=== PATIENT | female | born 1985 | race Caucasian/White ===

== ENCOUNTER → 2017-06-21 | Outpatient (CLI) | payer BC | END | disposition home or self-care (01) | LOC: LAB 12:00 | DX: D64.9 Anemia, unspecified (principal); E03.9 Hypothyroidism, unspecified; E16.2 Hypoglycemia, unspecified; N39.0 Urinary tract infection, site not specified; E78.2 Mixed hyperlipidemia; E55.9 Vitamin D deficiency, unspecified; E28.2 Polycystic ovarian syndrome; N92.6 Irregular menstruation, unspecified; R82.79 Other abnormal findings on microbiological examination of urine ==

== ENCOUNTER 2017-12-17 09:31 | Outpatient (CLI) | payer BC | END 2017-12-17 09:44 | disposition home or self-care (01) | LOC: LAB 09:31 | DX: E22.1 Hyperprolactinemia (principal) ==

== ENCOUNTER 2018-07-25 09:50 | Outpatient (CLI) | payer BC | END 2018-07-25 09:57 | disposition home or self-care (01) | LOC: LAB 09:50 | DX: E03.8 Other specified hypothyroidism (principal); I10 Essential (primary) hypertension; E78.4 Other hyperlipidemia; N30.00 Acute cystitis without hematuria; E83.51 Hypocalcemia ==

== ENCOUNTER → 2019-01-02 14:17 | Outpatient (CLI) | payer BC | END | disposition home or self-care (01) | LOC: LAB 14:17 | DX: Z34.82 Encounter for supervision of other normal pregnancy, second trimester (principal); A92.8 Other specified mosquito-borne viral fevers ==

== ENCOUNTER 2019-02-19 06:31 | Outpatient (CLI) | payer BC | END 2019-02-19 06:46 | disposition home or self-care (01) | LOC: LAB 06:31 | DX: Z34.82 Encounter for supervision of other normal pregnancy, second trimester (principal) ==

== ENCOUNTER 2019-03-01 06:31 | Outpatient (CLI) | payer BC | END 2019-03-01 06:40 | disposition home or self-care (01) | LOC: LAB 06:31 | DX: Z34.82 Encounter for supervision of other normal pregnancy, second trimester (principal) ==

== ENCOUNTER 2019-05-02 06:30 | Outpatient (CLI) | payer BC | END 2019-05-02 06:40 | disposition home or self-care (01) | LOC: LAB 06:30 | DX: Z34.83 Encounter for supervision of other normal pregnancy, third trimester (principal); A92.8 Other specified mosquito-borne viral fevers ==

== ENCOUNTER 2019-05-16 14:58 | Inpatient (IN) | payer BC ==
[2019-05-28] MEDS ORDERED: IRON18 MG PO (10:25)
[2019-05-28] MEDS ORDERED: PRENA1 TRUE CO1 EACH PO (10:26)
[2019-05-28] MEDS ORDERED: PROAIR RESPICL90 MCG IH (10:27)
[2019-05-28] MEDS ORDERED: SYMBICORT 80/10.2 GM IH (10:28)
[2019-06-01] MEDS ORDERED: FUSION PLUS CA1 EACH PO (10:55)
[2019-06-01] MEDS ORDERED: SIMETHICONE125 M1 PO (10:56)
[2019-06-01] MEDS ORDERED: COLACE100 MG PO (10:56)
[2019-06-01] MEDS ORDERED: IBU600 MG PO (10:57)
== END 2019-06-01 12:04 | disposition home or self-care (01) | DRG 788 ==
LOC: O/R 05-28 07:12 → OB/GYN 05-28 07:12 → LDR 05-28 07:12 → O/R 05-29 12:53 → OB/GYN 05-29 16:12 → LDR 06-03 14:15
PROVIDERS: ADMIT Obstetrics & Gynecology
PROC: 3E0P7VZ Introduction of Hormone into Female Reproductive, Via Natural or Artificial Opening (ICD-10-PCS; 2019-05-28)
PROC: 3E033VJ Introduction of Other Hormone into Peripheral Vein, Percutaneous Approach (ICD-10-PCS; 2019-05-28)
PROC: 4A1HXCZ Monitoring of Products of Conception, Cardiac Rate, External Approach (ICD-10-PCS; 2019-05-28)
PROC: 10D00Z1 Extraction of Products of Conception, Low, Open Approach (ICD-10-PCS; principal; 2019-05-29 13:30)
DX: O82 Encounter for cesarean delivery without indication (principal); O61.0 Failed medical induction of labor; Z3A.39 39 weeks gestation of pregnancy; Z37.0 Single live birth

== ENCOUNTER 2019-07-02 11:39 | Outpatient (CLI) | payer BC ==
[~2019-07-02 11:39] MED LIST: COLACE100 MG PO; FUSION PLUS CA1 EACH PO; IBU600 MG PO; IRON18 MG PO; PRENA1 TRUE CO1 EACH PO; PROAIR RESPICL90 MCG IH; SIMETHICONE125 M1 PO; SYMBICORT 80/10.2 GM IH
== END 2019-07-02 11:45 | disposition home or self-care (01) ==
LOC: LAB 11:39
DX: E11.9 Type 2 diabetes mellitus without complications (principal); D64.89 Other specified anemias

== ENCOUNTER → 2019-10-02 11:20 | Outpatient (CLI) | payer BC | END | disposition home or self-care (01) | LOC: LAB 11:20 | PROVIDERS: ATTEND Obstetrics & Gynecology Maternal & Fetal Medicine | DX: E03.8 Other specified hypothyroidism (principal); D63.8 Anemia in other chronic diseases classified elsewhere; N30.90 Cystitis, unspecified without hematuria; R73.09 Other abnormal glucose ==

== ENCOUNTER → 2019-10-11 10:46 | Outpatient (CLI) | payer BC | END | disposition home or self-care (01) | LOC: LAB 10:46 | PROVIDERS: ATTEND General Practice | DX: R05 Cough (principal); R06.2 Wheezing; R50.9 Fever, unspecified; Z20.828 Contact with and (suspected) exposure to other viral communicable diseases ==

== ENCOUNTER 2019-10-11 12:29 | Outpatient (CLI) | payer BC | END 2019-10-11 12:35 | disposition home or self-care (01) | LOC: LAB 12:29 | PROVIDERS: ATTEND Obstetrics & Gynecology Maternal & Fetal Medicine | DX: D64.89 Other specified anemias (principal) ==

== ENCOUNTER 2019-10-11 13:25 | Outpatient (CLI) | payer BC | END 2019-10-11 13:31 | disposition home or self-care (01) | LOC: SONOGRAMA 13:25 → MAMO-SONO 14:45 | PROVIDERS: ATTEND Obstetrics & Gynecology Maternal & Fetal Medicine | DX: N60.11 Diffuse cystic mastopathy of right breast (principal); N60.12 Diffuse cystic mastopathy of left breast; N63.10 Unspecified lump in the right breast, unspecified quadrant; N63.20 Unspecified lump in the left breast, unspecified quadrant ==

== ENCOUNTER 2019-12-12 06:23 | Outpatient (CLI) | payer BC | END 2019-12-12 06:34 | disposition home or self-care (01) | LOC: LAB 06:23 | PROVIDERS: ATTEND Obstetrics & Gynecology Maternal & Fetal Medicine | DX: E03.8 Other specified hypothyroidism (principal); N91.2 Amenorrhea, unspecified; N92.1 Excessive and frequent menstruation with irregular cycle ==

== ENCOUNTER 2019-12-18 10:22 | Outpatient (CLI) | payer BC | END 2019-12-18 14:12 | disposition home or self-care (01) | LOC: SONOGRAMA 10:22 | PROVIDERS: ATTEND Obstetrics & Gynecology Maternal & Fetal Medicine | DX: N84.0 Polyp of corpus uteri (principal) ==

== ENCOUNTER → 2020-01-07 10:43 | Outpatient (CLI) | payer BC | END | disposition home or self-care (01) | LOC: LAB 10:43 | PROVIDERS: ATTEND Obstetrics & Gynecology Maternal & Fetal Medicine | DX: N97.1 Female infertility of tubal origin (principal) ==

== ENCOUNTER 2021-02-04 09:05 | Outpatient (CLI) | payer BC | END 2021-02-04 09:06 | disposition home or self-care (01) | LOC: LAB 09:05 | PROVIDERS: ATTEND Obstetrics & Gynecology Maternal & Fetal Medicine | DX: E03.8 Other specified hypothyroidism (principal); D63.8 Anemia in other chronic diseases classified elsewhere; N30.90 Cystitis, unspecified without hematuria; E78.00 Pure hypercholesterolemia, unspecified; R73.09 Other abnormal glucose; K92.1 Melena; E55.9 Vitamin D deficiency, unspecified ==

== ENCOUNTER 2021-02-04 09:39 | Outpatient (CLI) | payer BC | END 2021-02-04 09:50 | disposition home or self-care (01) | LOC: SONOGRAMA 09:39 | PROVIDERS: ATTEND Obstetrics & Gynecology Maternal & Fetal Medicine | DX: N64.59 Other signs and symptoms in breast (principal); N60.11 Diffuse cystic mastopathy of right breast ==

== ENCOUNTER 2021-06-23 15:06 | Outpatient (CLI) | payer OTHER | END 2021-06-23 15:08 | disposition home or self-care (01) | LOC: TOM 15:06 | PROVIDERS: ATTEND Obstetrics & Gynecology Maternal & Fetal Medicine | DX: R10.30 Lower abdominal pain, unspecified (principal) ==

== ENCOUNTER 2022-01-01 09:17 | Outpatient (CLI) | payer OTHER | END 2022-01-01 09:19 | disposition home or self-care (01) | LOC: RAD 09:17 | PROVIDERS: ATTEND Internal Medicine Pulmonary Disease | DX: J45.31 Mild persistent asthma with (acute) exacerbation (principal); U07.1 COVID-19 ==

== ENCOUNTER → 2022-02-12 08:42 | Outpatient (CLI) | payer OTHER | END | disposition home or self-care (01) | LOC: LAB 08:42 | PROVIDERS: ATTEND Internal Medicine Pulmonary Disease | DX: J45.31 Mild persistent asthma with (acute) exacerbation (principal); U09.9 Post COVID-19 condition, unspecified ==

== ENCOUNTER → 2022-07-02 09:22 | Outpatient (CLI) | payer OTHER | END | disposition home or self-care (01) | LOC: LAB 09:22 | PROVIDERS: ATTEND Internal Medicine Hematology & Oncology | DX: D50.8 Other iron deficiency anemias (principal); R79.9 Abnormal finding of blood chemistry, unspecified; R74.02 Elevation of levels of lactic acid dehydrogenase [LDH]; I10 Essential (primary) hypertension; K76.89 Other specified diseases of liver; D63.8 Anemia in other chronic diseases classified elsewhere; D55.0 Anemia due to glucose-6-phosphate dehydrogenase [G6PD] deficiency; D51.1 Vitamin B12 deficiency anemia due to selective vitamin B12 malabsorption with proteinuria; D51.0 Vitamin B12 deficiency anemia due to intrinsic factor deficiency; E03.8 Other specified hypothyroidism; E06.3 Autoimmune thyroiditis; R19.5 Other fecal abnormalities; E55.9 Vitamin D deficiency, unspecified; D50.0 Iron deficiency anemia secondary to blood loss (chronic); N92.1 Excessive and frequent menstruation with irregular cycle ==

== ENCOUNTER → 2022-07-02 | Outpatient (CLI) | payer OTHER | END | disposition home or self-care (01) | LOC: SONOGRAMA 10:29 | PROVIDERS: ATTEND Internal Medicine Hematology & Oncology | DX: E04.2 Nontoxic multinodular goiter (principal); D50.0 Iron deficiency anemia secondary to blood loss (chronic); N92.1 Excessive and frequent menstruation with irregular cycle ==

== ENCOUNTER 2022-12-04 07:55 | Outpatient (CLI) | payer OTHER | END 2022-12-04 08:06 | disposition home or self-care (01) | LOC: LAB 07:55 | PROVIDERS: ATTEND Internal Medicine Hematology & Oncology | DX: D50.8 Other iron deficiency anemias (principal); R79.9 Abnormal finding of blood chemistry, unspecified; I10 Essential (primary) hypertension; R74.02 Elevation of levels of lactic acid dehydrogenase [LDH]; K76.89 Other specified diseases of liver; D51.8 Other vitamin B12 deficiency anemias; E55.9 Vitamin D deficiency, unspecified; E03.8 Other specified hypothyroidism; N92.1 Excessive and frequent menstruation with irregular cycle; D51.3 Other dietary vitamin B12 deficiency anemia ==

== ENCOUNTER 2022-12-20 12:45 | Outpatient (CLI) | payer OTHER | END 2022-12-20 13:05 | disposition home or self-care (01) | LOC: SONOGRAMA 12:45 | PROVIDERS: ATTEND Obstetrics & Gynecology Maternal & Fetal Medicine | DX: N60.19 Diffuse cystic mastopathy of unspecified breast (principal); N63.0 Unspecified lump in unspecified breast; N60.11 Diffuse cystic mastopathy of right breast ==

== ENCOUNTER 2024-02-07 10:17 | Outpatient (CLI) | payer OTHER | END 2024-02-07 10:25 | disposition home or self-care (01) | LOC: MAMO-SONO 10:17 | PROVIDERS: ATTEND Obstetrics & Gynecology Maternal & Fetal Medicine | DX: N63 Unspecified lump in breast (principal); Z12.31 Encounter for screening mammogram for malignant neoplasm of breast; N64.4 Mastodynia; N60.11 Diffuse cystic mastopathy of right breast ==

== ENCOUNTER 2024-11-24 05:55 | Emergency (ER) | payer OTHER ==
[~2024-11-24] VITALS: Ht 162.6 cm; Wt 117.9 kg
[2024-11-24 09:34] LABS: BASO % 0.3 % (0.1-1.2); EOS # 0.14 (0.04-0.54); EOS % 2.3 % (0.7-7.0); LYMPH # 2.27 (1.18-3.74); LYMPH % 36.6 % (19.3-53.1); MEAN PLATELET VOLUME 9.90 fl (9.4-12.4); MONO # 0.43 (0.24-0.82); MONO % 6.9 % (4.7-12.5); NEUT # 3.34 (1.56-6.13); NEUT % 53.7 % (34.0-71.1); RED CELL DISTRIBUTION WIDTH 17.9 % (11.6-14.4)
[2024-11-24 09:50] LABS: BUN CREA RATIO 23.0 (7.0-25.0); CREATININE SERUM 0.65 mg/dL (0.55-1.02); GFR 102.56; GLUCOSE FASTING 105.0 mg/dL (65-100); OSMOLALITY SERUM 282.0 MOSM/KG (275-295)
[2024-11-24] MEDS ORDERED: KETOROLAC TROMETHAMINE 60 MG VIAL IM ONE (12:15)
== END 2024-11-24 12:23 | disposition home or self-care (01) ==
LOC: ER 05:55
DX: K59.01 Slow transit constipation (principal); M94.0 Chondrocostal junction syndrome [Tietze]

== ENCOUNTER 2025-02-07 10:00 | Outpatient (CLI) | payer OTHER ==
[2025-02-07 11:04] LABS: BASO % 0.3 % (0.1-1.2); EOS # 0.09 (0.04-0.54); EOS % 1.5 % (0.7-7.0); LYMPH # 1.95 (1.18-3.74); LYMPH % 31.7 % (19.3-53.1); MEAN PLATELET VOLUME 9.90 fl (9.4-12.4); MONO # 0.39 (0.24-0.82); MONO % 6.3 % (4.7-12.5); NEUT # 3.68 (1.56-6.13); NEUT % 59.9 % (34.0-71.1); RED CELL DISTRIBUTION WIDTH 17.9 % (11.6-14.4)
[2025-02-07 11:07] LABS: URINE APPEARANCE Clear; URINE BILIRRUBIN Negative (NEGATIVE); URINE BLOOD Negative; URINE COLOR Yellow; URINE GLUCOSE Negative (NEGATIVE); URINE KETONE Negative (NEGATIVE); URINE LEUKOCYTE Negative; URINE NITRATE Negative; URINE PROTEIN Negative (NEGATIVE); URINE UROBILINOGEN 1.0 E.U./dl
[2025-02-07 11:11] LABS: URINE BACTERIA 5.9 uL (0.0-1933); URINE EPITHELIAL CELLS 8.3 uL (0.0-38.8); URINE RBC 21.5 uL (0.0-20.8)
[2025-02-07 11:21] LABS: URINE CAST 0.00 uL (0.0-1.40); URINE WBC 1.2 uL (0.0-23.2)
[2025-02-07 11:57] LABS: ALT/SGPT 23.0 U/L (12-78); AST/SGOT 15.0 U/L (15-37); BILIRUBIN TOTAL 0.52 mg/dL (0.3-1.2); BUN CREA RATIO 23.0 (7.0-25.0); CHOL HDL RATIO 4.2 (0-5.0); CREATININE SERUM 0.56 mg/dL (0.55-1.02); GFR 121.15; GLOBULINA 3.3 G/DL (2.4-3.5); GLUCOSE FASTING 88.0 mg/dL (65-100); HDL 46.0 mg/dl (40-60); LDL 129.0 mg/dl (0-130); OSMOLALITY SERUM 283.0 MOSM/KG (275-295); TSH 2.1 uIU/mL (0.358-3.74); VLDL 19.0 (0-39)
== END 2025-02-07 10:10 | disposition home or self-care (01) ==
LOC: CIR.AMB 10:00 → LAB 10:00
PROVIDERS: ATTEND Obstetrics & Gynecology Maternal & Fetal Medicine
DX: E03.8 Other specified hypothyroidism (principal); D63.8 Anemia in other chronic diseases classified elsewhere; N30.90 Cystitis, unspecified without hematuria; E78.00 Pure hypercholesterolemia, unspecified; R73.9 Hyperglycemia, unspecified; K92.1 Melena; Z12.11 Encounter for screening for malignant neoplasm of colon; E55.9 Vitamin D deficiency, unspecified